=== PATIENT | male | born 1960 | race Caucasian/White ===

== ENCOUNTER 2016-05-21 20:44 | Emergency (ER) | payer OTHER ==
[2016-05-21 21:05] VITALS: RESP 18; TEMP 98.2
[2016-05-21] MEDS ORDERED: Meperidine Inj 50 MG/ML CARPUJECT IM ONE (21:44)
[2016-05-21] MEDS ORDERED: CYCLOBENZAPRINE 10 MG TABLET PO SCH (21:45)
[2016-05-21] MEDS ORDERED: HYDROcodone-APAP 5 MG -325 MG TABLET PO ONE (22:09)
[2016-05-21] MEDS ORDERED: HYDROcodone-APAP 5 MG -325 MG TABLET PO SCH (22:15)
--- NOTE | 2016-05-21 22:41 | DI ---
XR L-SPINE 2-3 VW,05/21/2016 9:14 PM: Clinical History: Trauma. Previous Exam: None at this facility. Findings: AP and lateral views of the lumbar spine are obtained, and demonstrate anatomic alignment without fra ctures. Vertebral body height is preserved except for some mild anterior wedging of the T12-L2 verteb ral bodies. There is some mild grade 1 anterolisthesis of L5 on S1 with possible bilateral L5 pars de fects. Impression: 1. Degenerative changes of the lumbar spine. 2. 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
--- NOTE | 2016-05-22 04:41 | PDOC ---
Back Pain / Injury HPI - General Chief Complaint: Neck / Back Complaint Stated Complaint: Back spasms/back pain Date Seen by Provider: 05/21/16 Time Seen by Provider: 21:00 Source: Patient Exam Limitations: POSITIVE: No limitations Nurse's Notes Reviewed & Considered: Yes - History of Present Illness Initial Comments: The patient is a 55-year-old male. Patient states that around 1000 this morning he was lifting a piece of equipment weighing approximately 100 pounds and he felt an abrupt "twinge"in the right paralumbar area. He states that around 1300 he was stepping out of his truck and he experienced an abrupt onset of "spasms" right paralumbar area. He states he had a similar episode of pain several years ago. He had no direct trauma. No radicular symptoms. No paresthesia or sensory or motor symptoms. Body Location Affected: REPORTS: Back (Right paralumbar area) Timing: REPORTS: Abrupt Duration: <24 hours (11 hours IMPROVEMENT SPEC, approximately) Severity: Moderate Quality: REPORTS: "Pain" Context: REPORTS: None Modifying Factors: improves with: Palpation, Movement, Walking. worse with: Analgesics, Antacids, Breathing, Coughing, Defecating, Vomiting, Eating, Exercise, Lying down, Urinating, Rest, Upright Position, Remaining Still, Other Associated Symptoms: REPORTS: Denies symptoms Similar Symptoms Previously: Yes (several years ago had similar episode) Recent Care Received: REPORTS: Denies Any Prior Injuries Related to Current Complaint?: No - Patient Home Medications Home Medications: Home Medications Cyclobenzaprine HCl [Flexeril] 10 mg PO Q6H PRN #20 tab 05/21/16 HYDROcodone/APAP 10/325 Tab [Pruden 10/325 Tab] 1 tab PO Q6H PRN #20 tab - Patient Allergies Allergies/Adverse Reactions: Allergies Allergy/AdvReac Type Severity Reaction Status Date / Time No Known Allergies Allergy Verified 05/21/16 20:48 Past Medical History - heen HEENT History: Denies History Cardiovascular History: Denies History Respiratory History: Denies History Gastrointestinal History: Denies History Genitourinary History: Denies History Endocrine History: Denies History Musculoskeletal History: Back Pain Neurological History: Denies History Blood Disorders: Denies History Psychiatric History: Denies History History of Sexually Transmitted Diseases: No Male Reproductive History: Denies History Cancer History: Denies History In Past Year Been Physically Harmed or Verbally Threatened: No History of MDRO: No History of Other Communicable Diseases: No Tobacco Use: Never Smoker Alcohol Use: Other Type of alcohol normally used: Beer, Wine How much alcohol do you normally drink a day?: A COUPLE DAILY Substance Use Type: None Previous Surgical History: No Significant Family History: No pertinent family hx Past Medical History Reviewed: Reviewed - No Changes ROS - Limitations ROS Limitations: No Limitations Constitution: REPORTS: Denies Symptoms Cardiovascular: REPORTS: Denies Cardiac Symptoms Respiratory: REPORTS: Denies Resp Symptoms Neurological: REPORTS: Denies Neuro Symptoms Gastrointestinal: REPORTS: Denies GI Symptoms Endocrine: REPORTS: Denies Symptoms Musculoskeletal: REPORTS: Recent Injury (As above; right paralumbar pain) Genitourinary: REPORTS: Denies Symptoms Eyes: REPORTS: Denies Symptoms ENT: REPORTS: Denies Symptoms Skin: REPORTS: Denies Skin Symptoms Lympathic: REPORTS: Denies Lympathic Symptoms Immunologic: POSITIVE: Denies Symptoms Psychiatric: POSITIVE: Denies Psych Symptoms Back Physical Assessment - General Appearance General Appearance: REPORTS: Alert, Cooperative, No Acute Distress, No Evidence of Trauma - HEENT HEENT: POSITIVE: Head Inspection Nml, Eyes Inspection Nml, Ears Inspection Nml, Nose Inspection Nml, Oral/Dental Inspect. Nml, Pharynx Inspect. Nml, PERRL, EOMI - Pupil Size Pupil Size: 4 mm: Bilateral - Neck Neck: POSITIVE: Non Tender, Painless ROM, Trachea Midline, Nexus Criteria Negative - Respiratory / CVS Respiratory / CVS: POSITIVE: Chest Non Tender, No Ecchymosis, Breath Sounds Normal, No Respiratory Distress, Heart Sounds Normal, Regular Rate/Rhythm - Abdomen Abdomen: Soft: (All Quadrants), Normal Bowel Sounds: (All Quadrants), Denies Tenderness: (All Quadrants), No Splenomegaly: (All Quadrants), No Hepatomegaly: (All Quadrants), No Guarding: (All Quadrants), No Rebound: (All Quadrants), No Palpable Pulse: (All Quadrants), No Palpabale Mass: (All Quadrants), No Distention: (All Quadrants), No Rigidity: (All Quadrants) - Back Back: REPORTS: No CVA Tenderness, No Vertebral Tenderness, Muscle Spasm (Right paralumbar musculature), Limited ROM, See Diagram. DENIES: Non Tender, Painless ROM, Vertebral Pt. Tenderness, CVA Tenderness (R), CVA Tenderness (L) - Skin Skin: REPORTS: Intact, Normal For Race, Warm, Dry, No Rash - Extremities Extremity Assessment: Non-Tender: (ALL), Normal ROM: (ALL), No Edema: (ALL), Normal Inspection: (ALL), No Swelling: (ALL) Musculoskeletal: REPORTS: Back Pain, Recent Injury (As above). 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, Motor Normal, Sensation Normal, Mood Appropriate, Affect Appropriate, Reflexes Normal Reflexes: Patellar (L): 2+, Radial (R): 2+ Images - Complete Complete: 1 - Area of pain on palpation and muscular spasm Back Progress - Results Reviewed by me Xrays/CTs/US Reviewed: Yes Discussed with Radiologist: Yes Radiology Findings: Mild degenerative changes with possible L5 pars defect - Patient's Progress Pain Medication Addressed: POSITIVE: Yes (Patient given 75 mg of Demerol IM in ER and discharged on hydrocodone/APAP, one every 4-6 hours as necessary for pain and Flexeril, 10 mg every 6 hours as necessary for spasms.) School/Work Release Addressed: POSITIVE: Yes (Rest for one day) Re-Examine Time: 21:40 Re-Examine Comment: Some relief of pain on discharge Status: POSITIVE: Improved, Re-Examined - Consult Counseled: POSITIVE: Patient, Family (), RE: Radiology Results, RE: DX, RE: Need for F/U Patient Care Time - Estimated PCT Patient Care Time (In Minutes): 25 Vital Signs - Recent Vital Signs Vital Signs: Vital Signs (Last 8 hours) Temp Pulse Resp BP Pulse Ox 05/21/16 20:45 98.2 F 86 18 133/99 92 - VS Reviewed Vital Signs Reviewed: Yes Discharge Clinical Impression: Low back sprain Discharge Disposition: Discharged to Home Condition: Stable Prescriptions / Orders: Cyclobenzaprine HCl [Flexeril] 10 mg PO Q6H PRN #20 tab PRN Reason: Spasms HYDROcodone/APAP 10/325 Tab [Pruden 10/325 Tab] 1 tab PO Q6H PRN #20 tab PRN Reason: Pain Patient Instructions Given at Discharge: Low Back Strain (ED) Additional Instructions: X-ray of your lower back is normal. Rest for a day or so. The position of maximum relaxation for your back is usually to lay flat on your back on a firm surface with a small pillow underneath your knees. Warm moist compresses to your back. Flexeril, one every 6 hours as necessary for back spasms. Hydrocodone/APAP, one every 6 hours as necessary for pain. Follow-up with your primary care provider. Return here as necessary. Follow Up With: NONE,NONE [Primary Care Provider] - (Instructions and medications as above. Follow-up with your primary care provider. Return here anytime if condition worsens.)
== END 2016-05-21 22:10 | disposition home or self-care (01) ==
LOC: ER 20:44
DX: S33.5XXA Sprain of ligaments of lumbar spine, initial encounter (principal); X50.0XXA Overexertion from strenuous movement or load, initial encounter
CPT/HCPCS: 72100; 96372; 99282; 99283; J2175